=== PATIENT | male | born 1950 | race Caucasian/White ===

== ENCOUNTER → 2022-04-28 | Outpatient (CLI) | payer OTHER ==
--- NOTE | 2022-04-28 22:47 | MR ---
EXAMINATION TYPE: MR shoulder RT wo con DATE OF EXAM: 04/28/2022 COMPARISON: None HISTORY: Right shoulder pain. Multiplanar multiecho imaging of the right shoulder with no contrast. There is moderate-sized shoulder joint effusion. There is severe narrowing of the shoulder joint spac e with spur formation. There is fluid around the biceps tendon. There is some thickening and mild def ormity of the glenoid seven. There is spurring of the humeral head. There is severe subacromial joint space narrowing. There is mild spurring at the AC joint. The subscapularis tendon is intact. The infraspinatus tendon is intact. No fracture seen. IMPRESSION: Advanced hypertrophic osteoarthritis in the glenohumeral joint. Shoulder joint moderate sized effusio n. No fracture seen. Moderate subacromial joint space narrowing but no evidence of a full-thickness t ear of the supraspinatus tendon.
== END | disposition home or self-care (01) ==
LOC: RADMRIMAIN 08:30
PROVIDERS: ATTEND Orthopaedic Surgery
DX: M19.011 Primary osteoarthritis, right shoulder (principal); M25.511 Pain in right shoulder

== ENCOUNTER → 2023-08-26 | Outpatient (CLI) | payer OTHER ==
--- NOTE | 2023-08-26 09:26 | CT ---
EXAMINATION TYPE: CT shoulder RT wo con DATE OF EXAM: 08/26/2023 COMPARISON: None HISTORY: Arthrex shoulder pre op surgical planning CT DLP: [address] of the right shoulder with reconstruction imaging. TECHNIQUE: Unenhanced CT of the right shoulder was performed with bone and soft tissue window setting s submitted in the axial coronal and sagittal planes. At a separate workstation 3-D TR imaging was o btained. FINDINGS: Moderate to severe glenohumeral joint space narrowing with subchondral sclerosis and associated humer al head spurring is also spur formation about the inferior margin of the glenoid. There is elevation of the humeral head relative to the glenoid and narrowing of the subacromial space which may reflect chronic rotator cuff tear. There is a flat chromium noted. Mild AC joint arthropathy seen. No evidenc e for fracture or osseous lesion. Small joint effusion noted. Visualized portions of the right lung a re clear. IMPRESSION: 1. Advanced osteoarthritis right glenohumeral joint space. 2. Chronic rotator cuff tear difficult to exclude.
== END | disposition home or self-care (01) ==
LOC: RADCTMAIN 08:25
PROVIDERS: ATTEND Orthopaedic Surgery
DX: Z01.818 Encounter for other preprocedural examination (principal); M19.011 Primary osteoarthritis, right shoulder; M75.111 Incomplete rotator cuff tear or rupture of right shoulder, not specified as traumatic

== ENCOUNTER → 2023-08-26 | Outpatient (CLI) | payer OTHER | END | disposition home or self-care (01) | LOC: LABPAT 08:44 | PROVIDERS: ATTEND Orthopaedic Surgery | DX: Z01.812 Encounter for preprocedural laboratory examination (principal); M19.011 Primary osteoarthritis, right shoulder; Z22.322 Carrier or suspected carrier of Methicillin resistant Staphylococcus aureus | CPT/HCPCS: 87070 ==

== ENCOUNTER 2023-10-21 05:45 | Day surgery (SDC) | payer OTHER ==
[2023-10-14 12:38] VITALS: BMI 31.1
--- NOTE | 2023-10-20 08:33 | P.HPOR ---
History of Present Illness H&P Date: 10/20/23 Chief Complaint: right shoulder pain patient is a 72-year-old retired gentleman who presents with progressive right shoulder pain for the past several years worsening over the past several months. He's having pain with any overhead use and activity. He is having night symp toms. He tried medications in addition to injections without much relief. He notes daily pain that limits his normal function and activities. Review of Systems as per HPI Past Medical History Past Medical History: Hyperlipidemia, Hypertension, Osteoarthritis (OA) History of Any Multi-Drug Resistant Organisms: None Reported Past Surgical History: No Surgical Hx Reported Additional Past Surgical History / Comment(s): Colonoscopy X2. Past Anesthesia/Blood Transfusion Reactions: No Reported Reaction Past Psychological History: No Psychological Hx Reported Smoking Status: Never smoker Past Alcohol Use History: Occasional Past Drug Use History: None Reported - Past Family History Father Family Medical History: Cancer Medications and Allergies Home Medications Medication Instructions Recorded Confirmed Type Vit C/E/Zn/Coppr/Lutein/Zeaxan 1 each PO BID 10/14/23 10/14/23 History [Preservision Areds 2 Softgel] hydroCHLOROthiazide 25 mg PO QAM 10/14/23 10/14/23 History Allergies Allergy/AdvReac Type Severity Reaction Status Date / Time No Known Allergies Allergy Verified 10/14/23 12:15 Physical Examination - Shoulder right Appearance: effusion Tenderness with palpation: anterior Pain: with abduction, with forward flexion ROM: forward flexion: 80 degrees ROM: internal rotation: lower lumbar ROM: external rotation: 0 degrees Crepitus with motion: Yes Strength: abduction: 5/5 Strength: external rotation: 5/5 Tests: internal impingement tests: positive, external impingment tests: positive Results patient is a well-developed well-nourished male proximal 5 foot 8, 210 pounds of endomorphic habitus. HEENT exam is nonfocal, neck is supple. He's tender about the right shoulder anterior glenohumeral joint. He has moderate crepitus. Olea, Neer sign, and speed test are positive. His distal neurovascular appears intact in the right upper extremity. - Diagnostic results Shoulder x-ray: image reviewed (3 views of the right shoulder obtained in the office show severe glenohumeral joint space narrowing with [id number] changes and subchondral sclerosis.) Assessment and Plan Assessment: severe right glenohumeral joint osteoarthrosis Plan: I talked to the patient at length regarding his condition along with treatment options. At this point he is quite symptomatic and painful despite attempted conservative measures. He opts to proceed with surgery. Operative risks were discussed at length in layman's terms. We'll plan to proceed with right total shoulder arthroplasty. Potentially we'll keep the patient for 23 hour postoperative.
[~2023-10-21 05:45] MED LIST: ACETAMINOPHEN TAB 500 MG TAB PO PRN; MELOXICAM 7.5 MG TAB PO PRN; TRANEXAMIC 1,000 MG/100ML-NACL 1,000 MG in SALINE 1 100ML.BAG IVPB PRN
[2023-10-21] MEDS ORDERED: ONDANSETRON 4 MG/2 ML VIAL ONE (06:07)
[2023-10-21] MEDS ORDERED: DEXAMETHASONE SOD PHOSPHATE 4 MG/ML 1 ML VIAL IV ONE (06:12)
[2023-10-21] MEDS ORDERED: LIDOCAINE 1% (10MG/ML) FOR IV START INTRADERMA PRN (06:12)
[2023-10-21] MEDS ORDERED: ONDANSETRON 4 MG/2 ML VIAL IVP ONE (06:12)
[2023-10-21] MEDS ORDERED: LACTATED RINGERS 1,000 ML IV ONE ×2 (06:12→08:53)
[2023-10-21] MEDS ORDERED: MIDAZOLAM 2 MG/2 ML VIAL IVP ONE (06:53)
[2023-10-21] MEDS ORDERED: METOCLOPRAMIDE 5 MG/ML 2 ML VIAL IVP PRN (07:00)
[2023-10-21] MEDS ORDERED: HYDROmorphone 0.5 MG/0.5 ML SYRINGE IVP PRN ×3 (07:00→09:33)
[2023-10-21] MEDS ORDERED: MIDAZOLAM 2 MG/2 ML VIAL IV PRN (07:00)
[2023-10-21] MEDS ORDERED: fentaNYL (PF) 50 MCG/ML 2 ML AMP IVP PRN (07:00)
--- NOTE | 2023-10-21 07:24 | P.ANPRN ---
Procedure Note - Anesthesia - Nerve Block Performed Right Interscalene Single Time Out Performed: Yes Date of Procedure: 10/21/23 Procedure Start Time: 06:43 Procedure Stop Time: 06:50 Location of Patient: PreOp Indication: Acute Post-Operative Pain, Analgesia, Requested by Surgeon Sedation Type: Sedate with meaningful contact maintained Preparation: Sterile Prep Position: Sitting Needle Types: Pajunk Needle Gauge: 21 Ultrasound used to visualize needle placement: Yes Ultrasound used to observe medication spread: Yes Injectate: 0.5% Ropivacaine (see comment for volume) (Ropiv 25ml) Blood Aspirated: No Pain Paresthesia on Injection Noted: No Resistance on Injection: Normal Image Stored and Saved: Yes Events: Uneventful and Well Tolerated
[2023-10-21] MEDS ORDERED: ROPIVACAINE 5 MG/ML 30 ML VIAL ONE (07:30)
[2023-10-21] MEDS ORDERED: LIDOCAINE 1% INJ 10MG/ML (20 ML MDV) ONE (07:30)
[2023-10-21] MEDS ORDERED: NEOSTIGMINE 1 MG/ML 10 ML VIAL ONE (07:30)
[2023-10-21] MEDS ORDERED: TRANEXAMIC 1,000 MG/100ML-NACL PREMIX BAG ONE (07:30)
[2023-10-21] MEDS ORDERED: ROCURONIUM 10 MG/ML (5 ML VIAL) IV ONE (07:30)
[2023-10-21] MEDS ORDERED: ePHEDrine 50 MG/ML 1 ML VIAL ONE (07:30)
[2023-10-21] MEDS ORDERED: PROPOFOL 10 MG/ML 20 ML VIAL IV ONE (07:30)
[2023-10-21] MEDS ORDERED: LIDOCAINE 1%-EPI 1:100,000 20 ML VIAL ONE (07:30)
[2023-10-21] MEDS ORDERED: fentaNYL (PF) 50 MCG/ML 2 ML AMP ONE (07:30)
[2023-10-21] MEDS ORDERED: MIDAZOLAM 2 MG/2 ML VIAL ONE (07:30)
[2023-10-21] MEDS ORDERED: GLYCOPYRROLATE 0.2 MG/ML 2 ML VIAL ONE (07:30)
[2023-10-21] MEDS ORDERED: ceFAZolin 1,000 MG in SODIUM CHLORIDE 0.9% 1,000 ML IRRIGATION ONE (08:10)
[2023-10-21] MEDS ORDERED: SENNOSIDES-DOCUSATE SODIUM 1 EACH TAB PO PRN (09:33)
[2023-10-21] MEDS ORDERED: HYDROcodone/APAP 5-325MG 1 EACH TAB PO PRN ×2 (09:33)
[2023-10-21] MEDS ORDERED: hydrOXYzine pamoate 25 MG CAP PO PRN (09:33)
[2023-10-21] MEDS ORDERED: HYDROcodone/APAP 7.5-325MG 1 EACH TAB PO PRN (09:36)
--- NOTE | 2023-10-21 09:51 | P.OP ---
Date of Procedure: 10/21/23 Preoperative Diagnosis: Right severe glenohumeral joint osteoarthrosis Postoperative Diagnosis: Same Procedure(s) Performed: Right total shoulder arthroplasty Implants: [employer] size 10 press-fit humeral stem, size 1 epiphysis, 48 x 21 mm eccentric humeral head, 48 mm central pegged cemented glenoid component. Anesthesia: oz FOWLER Surgeon: Gigi Romo Family Services Coordinator #1: Cristino Oviedo Estimated Blood Loss (ml): 250 Pathology: none sent Disposition: PACU Indications for Procedure: The patient's a 73-year-old male who presents with progressive right shoulder pain secondary to osteoarthrosis despite conservative measures. A discussion of the risks and benefits of operative intervention versus continued conservative measures was made with the patient. He opted to proceed with surgery. Operative risks to include infection, neurovascular injury, fracture, development of blood clots, possible component loosening/failure need for subsequent procedures was discussed. Informed consent was obtained. Operative Findings: As below Description of Procedure: The patient was brought to the operating room, and after induction of general anesthesia was placed in the beachchair position. The bony prominences were appropriately padded. The right upper extremity was prepped and draped in normal fashion. A deltopectoral incision was then made lateral to the coracoid process extending approximately 12 cm. The skin was incised sharply. Subcutaneous tissues were divided bluntly. Electrocautery was used for hemostasis. The deltopectoral interval was identified and the cephalic vein gently retracted laterally with the deltoid. Subdeltoid adhesions were bluntly dissected. A self-retaining retractor was placed. The clavipectoral fascia was opened and the conjoined tendon gently retracted medially. The upper one third of the pectoralis major was released to help facilitate exposure. The biceps was identified and the sheath was opened. The rotator interval was opened. The biceps was tenotomized and allowed to retract distally. A subscapularis peeled was performed and the subscap was tagged with #2 Ethibond suture.. The humeral head was then exposed releasing the capsule off the humeral neck. The shoulder was gently dislocated. A starting hole was made in the head in line with the humeral shaft. The shaft was reamed by hand up to 10 mm. There is good distal chatter. The cutting guide was placed planning on a cut flush with the rotator cuff insertion and 30 of retroversion. The cutting block was pinned in place. The humeral head cut was then made. This measured most appropriately at 48 x 21 mm. Residual inferior osteophytes were carefully removed flush with the [place] cortical bone. A posterior glenoid retractor was placed. The glenoid was then exposed releasing the labrum from the 12-6 o'clock position. Residual labral tissue was removed. The glenoid sized most appropriate 48 mm. A guidewire was then inserted planning on the appropriate version. The glenoid was reamed down to a bleeding bony surface. The central pedicle was drilled. The alignment guide was placed in the peripheral peg holes drilled. The trial size 48 mm glenoid was placed and was fully seated. There was good anterior to posterior and inferior to superior fit. The trial component was removed. Pulsatile lavage was utilized. The bony surface was dried. The peripheral peg holes were then pressurized with cement utilizing a syringe. Excess cement was removed. A central peg glenoid was then placed and was fully seated. This was gently impacted. This was held in place until the cement had sufficiently hardened. Attention was then paid again towards preparing the proximal humerus. The appropriate broach was placed in 30 of retroversion and was fully seated. An eccentric 48 x 21 mm humeral head was placed. The shoulder was gently reduced. It was taken through a range of motion. It was felt to be stable in flexion and extension with internal and external rotation. I felt there was adequate quaker of soft tissue tension. The shoulder was gently dislocated. The trial components were then removed. A #2 Ethibond was placed laterally for reattachment of the subscapularis. The humeral stem was inserted in 30 of retroversion and was fully seated. There was good rotational stability. The eccentric 48 x 21 mm humeral head was gently impacted. The shoulder was then gently reduced and taken through range of motion and was felt to be stable. Pulsatile lavage was utilized. Lesser tuberosity was reattached utilizing #2 Ethibond suture. The rotator interval was closed with #2 Ethibond suture. He had minimal drainage at this point therefore a deep drain was not placed. The deltopectoral interval was closed with interrupted 2-0 Vicryl sutures. The subcu tissues were reapproximated with interrupted 2-0 Vicryl sutures. The skin was reprepped with 3-0 subcuticular Prolene suture. Steri-Strips were applied. A sterile dressing was applied in addition to a sling. The patient was then awoken from general anesthesia and transferred to recovery room in good condition. Blood loss was estimated at 250 mL. No complications were incurred. Sponge and needle counts were correct at the end the case. Cristino DOVE assisted during the major components to the case to include positioning, exposure, resection, implantation, and closure.
--- NOTE | 2023-10-21 10:33 | XR ---
EXAMINATION TYPE: XR shoulder limited RT DATE OF EXAM: 10/21/2023 10:21 AM CLINICAL INDICATION:Male, 73 years old with history of s/p right total shoulder arthroplasty; [facility] COMPARISON: CT 08/18/2023 TECHNIQUE: XR shoulder limited RT; examined in AP, internally rotated and scapular Y projections. FINDINGS: Shoulder arthroplasty with hardware intact. Subcutaneous lucencies compatible with recent surgery. No evidence for fracture. Hardware appears in tact The remaining portions of the visualized chest are unremarkable. IMPRESSION: No acute osseous pathology. Shoulder arthroplasty changes hardware appears intact.
[2023-10-21] MEDS: LACTATED RINGERS 1,000 ML IV SCH (13:02)
[2023-10-21] MEDS ORDERED: BENZONATATE 100 MG CAP PO PRN (14:31)
--- NOTE | 2023-10-21 14:34 | P.CONS ---
History of Present Illness - Reason for Consult Consult date: 10/21/23 - History of Present Illness Patient is a 73-year-old male with impaired fasting glucose, hypertension, dyslipidemia, and osteoarthritis who presented for elective right total shoulder reverse arthroplasty. He tolerated the procedure well without any immediate postoperative complications. Patient seen and examined at bedside. He currently is not having any feeling back in his right shoulder got. He denies any chest pain or shortness of breath. He does have some cough and a sore throat after intubation. He denies any recent illnesses. Vital signs reviewed General: nontoxic, no distress, appears at stated age Derm: warm, dry Eyes: EOMI, no lid lag, anicteric sclera, pupils equal round reactive to light ENT: Nose and ears atraumatic Cardiovascular: S1S2 reg, no murmur, no edema Lungs: clear to auscultation bilateral, no rhonchi, no rales, no wheeze, no accessory muscle use Abdominal: soft, nontender to palpation, no guarding Ext: no gross muscle atrophy, no contractures Neuro: CN II-XII grossly intact, No focal neuro deficits, right shoulder in sling able to move all fingers Psych: Alert, oriented, appropriate affect Assessment/Plan: 73-year-old male status post right total shoulder arthroplasty Hypertension Dyslipidemia Impaired fasting glucose -Will check a.m. fasting glucose as patient's preoperative A1c was 6 -Hold hydrochlorothiazide, monitor blood pressures overnight and if stable can resume in AM. -Patient is not chronically on any cholesterol medications. Imaging: None new Data Review: Preoperative labs reviewed preop creatinine 0.7, hemoglobin 16.3, A1c 6 Thank you for allowing us to participate in the care of this pleasant patient. Do not hesitate to contact us with questions. Someone can be reached from the [facility] hospitalist group all hours of the day at [phone] or via [employer]. This dictation was prepared using [employer] voice recognition software. Though every attempt is made to correct errors during dictation some may still exist. Past Medical History Past Medical History: Hyperlipidemia, Hypertension, Osteoarthritis (OA) Additional Past Medical History / Comment(s): pre-DM History of Any Multi-Drug Resistant Organisms: None Reported Past Surgical History: No Surgical Hx Reported Additional Past Surgical History / Comment(s): Colonoscopy X2, right shoulder 10/21/22 Past Anesthesia/Blood Transfusion Reactions: No Reported Reaction Past Psychological History: No Psychological Hx Reported Smoking Status: Never smoker Past Alcohol Use History: Occasional Additional Past Alcohol Use History / Comment(s): Drinks 3-4 beers a day Past Drug Use History: None Reported - Past Family History Father Family Medical History: Cancer Medications and Allergies Home Medications Medication Instructions Recorded Confirmed Type Vit C/E/Zn/Coppr/Lutein/Zeaxan 1 each PO BID 10/14/23 10/14/23 History [Preservision Areds 2 Softgel] hydroCHLOROthiazide 25 mg PO QAM 10/14/23 10/21/23 History Allergies Allergy/AdvReac Type Severity Reaction Status Date / Time No Known Allergies Allergy Verified 10/21/23 06:15 Physical Exam Osteopathic Statement: *. No significant issues noted on an osteopathic structural exam other than those noted in the History and Physical/Consult. Vitals: Vital Signs Temp Pulse Pulse Resp BP BP Pulse Ox 10/21/23 14:00 97.6 F 111 H 20 127/83 10/21/23 12:30 87 16 116/66 94 L 10/21/23 12:00 85 16 116/64 93 L 10/21/23 11:45 84 16 118/67 93 L 10/21/23 11:30 84 16 122/71 93 L 10/21/23 11:15 91 16 118/63 94 L 10/21/23 11:00 89 16 122/66 98 10/21/23 10:45 86 16 121/75 98 10/21/23 10:33 87 16 114/71 98 10/21/23 10:18 81 16 125/69 98 10/21/23 10:03 85 16 128/70 92 L 10/21/23 09:48 97.8 F 85 16 119/65 100 10/21/23 07:16 69 16 161/84 92 L 10/21/23 06:22 97.6 F 75 16 181/98 98 Intake and Output 10/20/23 10/21/23 10/21/23 22:59 06:59 14:59 Intake Total 100 1801 Output Total 250 Balance 100 1551 Intake: IV 100 1801 Output: Estimated Blood Loss 250 Other: Weight 99.3 kg 99.3 kg
[2023-10-21] MEDS: BENZOCAINE/MENTHOL LOZENG 1 EACH LOZENGE MUCOUS MEM PRN ×2 (14:44→21:05)
[2023-10-21] MEDS: VIT A,C & E-LUTEIN-MINERALS 1 EACH TAB PO SCH (21:05)
[2023-10-21 23:23] VITALS: RESP 16
[2023-10-22 05:59] LABS: Glucose,Whole Blood 137 mg/dL (70-110)
[2023-10-22] MEDS: LACTATED RINGERS 1,000 ML IV SCH (07:21)
[2023-10-22 08:12] VITALS: BP 129/77; PULSE 76; TEMP 97.2
[2023-10-22] MEDS: VIT A,C & E-LUTEIN-MINERALS 1 EACH TAB PO SCH (08:44)
[2023-10-22] MEDS ORDERED: hydroCHLOROthiazide 25 MG TAB PO SCH (09:00)
[2023-10-22] MEDS ORDERED: ASPIRIN 325 MG TAB PO SCH (09:00)
--- NOTE | 2023-10-22 10:07 | P.PN ---
Subjective Progress Note Date: 10/22/23 Principal diagnosis: s/p right total shoulder arthroplasty Patient evaluated at bedside today, he is resting comfortably. He is utilizing the arm sling. He is having very minimal pain at this time. Has been urinating with no difficulty. Denies any headaches, lightheadedness, chest pain or shortness of breath Objective - Vital Signs Vital signs: Vital Signs Temp 97.2 F L 10/22/23 07:50 Pulse 76 10/22/23 07:50 Resp 16 10/22/23 07:50 BP 129/77 10/22/23 07:50 Pulse Ox 93 L 10/22/23 07:50 FiO2 Intake & Output 10/21/23 10/22/23 10/22/23 18:59 06:59 18:59 Intake Total 1801 Output Total 250 250 250 Balance 1551 -250 -250 Weight 99.3 kg Intake: IV 1801 Output: Urine 250 250 Estimated Blood Loss 250 Other: # Voids 1 1 - Exam Right upper extremity: Postoperative bandages in good position and condition, no active drainage. His sensation to light touch throughout the extremity is intact. Elbow extension and flexion, wrist extension and flexion are intact. Radial and ulnar pulses are 2+ - Labs Labs: Abnormal Lab Results - Last 24 Hours (Table) 10/22/23 Range/Units 05:58 POC Glucose (mg/dL) 137 H (70-110) mg/dL Assessment and Plan Assessment: Postoperative day #1 status post right total shoulder arthroplasty Plan: Pain control, plan for discharge home on oral medications DVT prophylaxis, aspirin 325 mg daily for 2 weeks Wound care instructions were discussed, this included removing of the bandage, showering and an icing instructions Activity level restrictions were discussed, this including use of arm sling Medical recommendations appreciated Discharge planning: Patient stable for discharge home today Time with Patient: Less than 30
[2023-10-22 10:10] LABS: Basophils % (A) 0 %; Eosinophils % (A) 0 %; HCT 35.8 % (39.0-53.0); HGB 12.4 gm/dL (13.0-17.5); Lymphocytes # (A) 1.1 k/uL (1.0-4.8); Lymphocytes % (A) 12 %; MCH 31.4 pg (25.0-35.0); MCHC 34.7 g/dL (31.0-37.0); MCV 90.5 fL (80.0-100.0); Monocytes # (A) 0.6 k/uL (0-1.0); Monocytes % (A) 7 %; Neutrophils # (A) 7.1 k/uL (1.3-7.7); Neutrophils % (A) 78 %; Platelet Count 138 k/uL (150-450); RBC 3.96 m/uL (4.30-5.90); RDW 13.4 % (11.5-15.5); WBC 9.2 k/uL (3.8-10.6)
--- NOTE | 2023-10-22 10:14 | P.DS ---
Providers Date of admission: 10/21/2023 Expected date of discharge: 10/22/23 Attending physician: Gigi Romo Consults: 10/21/23 09:33 Consult Physician Routine Consulting Provider: Eron Andrews Consult Reason/Comments: medical management s/p right total shoulder arthroplasty Do you want consulting provider notified?: Yes Primary care physician: [facility] Hospital Course: Date of admission: 10/21/2023 Date of discharge: 10/22/2023 Admission diagnosis: Status post right total shoulder arthroplasty Discharge diagnosis: Same Attending physician: Dr. Romo Surgical procedures: Right total shoulder arthroplasty Brief history: Patient is a 73-year-old male with a history of progressive primary right shoulder osteoarthritis. At this point patient has failed conservative treatment measures and has opted to proceed with a elective right total shoulder arthroplasty. Hospital course: Details of patient's surgery can be found in operative report. Patient tolerated the procedure well and was subsequently transported to orthopedic floor. Patient's orthopeidc and medical care was provided daily. Patient had daily laboratory tests performed for evaluation of overall blood counts. Patient had daily physical therapy to include strengthening range of motion as well as education with walker ambulation. Patient was treated with Aspirin for their postoperative DVT prophylaxis during their inpatient stay. Patient was noted to have a relatively uneventful postoperative course. Patient reported satisfactory pain control with oral pain medications by postoperative day 0. Patient showed satisfactory progress with physical therapy. Patient moved steadily through the program and had no difficulty meeting the goals by postoperative day 1. Given patient's otherwise satisfactory course and having met physical therapy goals, plan is to discharge patient home on postoperative day 1. Discharge condition/disposition: Patient will be discharged home in stable condition. Discharge medications: Instructions are given on resumption of patient's normal daily medications per primary care recommendation, in addition patient will be prescribed [place], senna, aspirin. Discharge instructions: 1. Wound care and infection precautions, keep incision dry and covered while showering, no lotions, creams, moisturizers. No soaking, tubs, pools, hottubs. Do not scrub over the incision. 2. Utilize arm sling 3. Ice and elevate when necessary. Do not exceed 20 minutes per hour with ice pack. 4. Utilize compression sleeve until seen at first follow up appointment. 5. Visiting nursing care. 7. Pain meds and anticoagulants per prescription. 8. Pain medication has potential to cause constipation. Increase oral fluid and fiber intake. Contact primary care provider if you have not had a bowel movement within 48 hours after discharge 9. No anti-inflammatory medication until discussed at first post operative visit, this including Motrin, Aleve, Mobic, Diclofenac 10. Follow up in office at 2 weeks postop with Robert Muniz PA-C/Cristino Woodward 11. Follow up with your primary care doctor 7-10 days after discharge. 12. Contact [facility] with any questions, . Procedures: Right total shoulder arthroplasty Patient Condition at Discharge: Good Plan - Discharge Summary Discharge Rx Participant: No New Discharge Prescriptions: New Sennosides/Docusate Sodium [Senna-S 8.6-50 mg Tablet] 1 each PO DAILY PRN #30 tablet PRN Reason: Constipation Aspirin 325 mg PO DAILY #30 tab HYDROcodone/APAP 7.5-325MG [[place] 7.5] 1 each PO Q6HR PRN #28 tab PRN Reason: Pain No Action hydroCHLOROthiazide 25 mg PO QAM Vit C/E/Zn/Coppr/Lutein/Zeaxan [Preservision Areds 2 Softgel] 1 each PO BID Discharge Medication List Vit C/E/Zn/Coppr/Lutein/Zeaxan [Preservision Areds 2 Softgel] 1 each PO BID 10/14/23 [History] hydroCHLOROthiazide 25 mg PO QAM 10/14/23 [History] Aspirin 325 mg PO DAILY #30 tab 10/22/23 [Rx] HYDROcodone/APAP 7.5-325MG [[place] 7.5] 1 each PO Q6HR PRN #28 tab 10/22/23 [Rx] Sennosides/Docusate Sodium [Senna-S 8.6-50 mg Tablet] 1 each PO DAILY PRN #30 tablet 10/22/23 [Rx] Follow up Appointment(s)/Referral(s): Cristino Oviedo, SUDHEER [PHYSICIAN TOLL COLLECTOR SUPERVISOR] - 2 Weeks Activity/Diet/Wound Care/Special Instructions: Orthopedic discharge instructions: 1. Okay to remove surgical dressing is a 10/23/2023 2. Keep incision covered and dry while showering 3. Pain medication as needed 4. Aspirin 325 mg daily for 2 weeks 5. Utilize arm sling 6. Plan for follow-up at [facility] 2 weeks Discharge Disposition: HOME SELF-CARE
[2023-10-22 11:04] LABS: Glucose,Whole Blood 145 mg/dL (70-110)
--- NOTE | 2023-10-22 11:26 | P.PN ---
Subjective Progress Note Date: 10/22/23 Subjective: Patient seen and examined at bedside. No acute events overnight. Has minimal pain in his right shoulder. Pertinent positives and negatives as discussed above, a complete review of systems was performed and all other systems are negative. Vitals Signs Reviewed. General: [nontoxic], [no distress], [appears at stated age] Derm: [warm], [dry], dressing clean, dry, intact Head: [atraumatic], [normocephalic], [symmetric] Eyes: [EOMI], [no lid lag], [anicteric sclera] Mouth: [no lip lesion], [mucus membranes moist] Cardiovascular: [S1S2 reg], [no murmur] Lungs: [CTA bilateral], [no rhonchi, no rales] , [no accessory muscle use] Abdominal: [soft], [ nontender to palpation], [no guarding], [no appreciable organomegaly] Ext: Right shoulder in a sling Neuro: [ CN II-XI grossly intact], [no focal neuro deficits] Psych: [Alert], [oriented], [appropriate affect] Data Reviewed Today: Pertinent Labs: Hemoglobin 12.4, WBC 9.2, blood sugars range between 1 37-1 45 Imaging: No new imaging Assessment and Plan: Hypertension Dyslipidemia, not on any medications Prediabetes, hyperglycemia -Restarted hydrochlorothiazide Status post shoulder surgery -Pain control per orthopedic surgery -Aspirin 325 daily for DVT prophylaxis -On bowel regimen Patient is otherwise medically optimized for discharge home Thank you for allowing us to participate in the care of this pleasant patient. Do not hesitate to contact us with questions. Someone can be reached from the [facility] hospitalist group all hours of the day at [phone] or via perfect serve. Objective - Vital Signs Vital signs: Vital Signs Temp 97.2 F L 10/22/23 07:50 Pulse 76 10/22/23 07:50 Resp 16 10/22/23 07:50 BP 129/77 10/22/23 07:50 Pulse Ox 93 L 10/22/23 07:50 FiO2 Intake & Output 10/21/23 10/22/23 10/22/23 18:59 06:59 18:59 Intake Total 1801 40 Output Total 250 250 250 Balance 1551 -250 -210 Weight 99.3 kg Intake: IV 1801 Intake, IV Titration 40 Amount Lactated Ringers 1,000 ml 40 @ 20 mls/hr IV .Q24H JAZ Rx#:[id number] Output: Urine 250 250 Estimated Blood Loss 250 Other: # Voids 1 1 - Labs CBC & Chem 7: 10/22/23 09:47 Labs: Abnormal Lab Results - Last 24 Hours (Table) 10/22/23 10/22/23 10/22/23 Range/Units 05:58 09:47 11:02 RBC 3.96 L (4.30-5.90) m/uL Hgb 12.4 L (13.0-17.5) gm/dL Hct 35.8 L (39.0-53.0) % Plt Count 138 L (150-450) k/uL POC Glucose (mg/dL) 137 H 145 H (70-110) mg/dL
== END 2023-10-22 13:29 | disposition home health service (06) ==
LOC: OR 05:45 → 4SSUR 09:42 → OR 10-22 13:29
PROVIDERS: ATTEND Orthopaedic Surgery
DX: M19.011 Primary osteoarthritis, right shoulder (principal); E78.5 Hyperlipidemia, unspecified; I10 Essential (primary) hypertension; F10.90 Alcohol use, unspecified, uncomplicated; Z79.82 Long term (current) use of aspirin; Z79.899 Other long term (current) drug therapy
CPT/HCPCS: 64415; 85025; 73020; 23472; C1713; C1776; J2250; J1100; J0690 ×2; J2405; J1170